=== PATIENT | female | born 2005 | race African-American/Black ===

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

== ENCOUNTER 2025-02-11 15:22 | Emergency (ER) | payer MEDICAID ==
[~2025-02-11] VITALS: Ht 154.9 cm; Wt 77.0 kg
[~2025-02-11 15:22] MED LIST changes: +ACET-2708 MT; +CEPH500T MT
[2025-02-11 15:30] VITALS: O2SAT 100
[2025-02-11 15:36] VITALS: BP 125/74; PULSE 72; RESP 18; TEMP 36.7; O2SAT 99
[2025-02-11 16:32] LABS: CLARITY URINE CLEAR (CLEAR); COLOR URINE YELLOW (YELLOW); GLUCOSE URINE NEGATIVE (NEGATIVE); KETONES URINE NEGATIVE (NEGATIVE); LEUKOCYTE ESTERASE URINE 1+ (NEGATIVE); NITRITE URINE NEGATIVE (NEGATIVE); OCCULT BLOOD URINE NEGATIVE (NEGATIVE); PH URINE 8.0 (4.5-8.0); PROTEIN URINE NEGATIVE (NEGATIVE); SPECIFIC GRAVITY URINE 1.022 (1.005-1.030); UROBILINOGEN URINE 0.2 E.U./dL (0.2-1.0)
[2025-02-11 16:48] LABS: HYALINE CASTS URINE 0-5 /lpf; SQUAMOUS EPITHELIAL CELL URINE 3+ /lpf (RARE/1+)
[2025-02-11 16:49] LABS: WBC URINE 15-25 /hpf (0-2)
[2025-02-11 16:50] LABS: BACTERIA URINE 1+
[2025-02-11] MEDS ORDERED: CEPH500C2 MT (18:17)
[2025-02-11] MEDS: CEFTRIAXONE SODIUM 250MG VIAL IM ONE (18:56)
[2025-02-14 04:12] LABS: CHLAMYDIA TRACHOMATIS NAA Negative (Negative); NEISSERIA GONORRHOEAE NAA Negative (Negative)
== END 2025-02-11 19:00 | disposition home or self-care (01) ==
LOC: ER 15:22
DX: R10.24 Suprapubic pain (principal); R30.0 Dysuria; Z79.899 Other long term (current) drug therapy
CPT/HCPCS: 99283; 87491; 87591; 81003; 87086; 96372; J0696